=== PATIENT | male | born 1950 | race Caucasian/White ===

== ENCOUNTER → 2019-08-06 11:41 | Outpatient (CLI) | payer OTHER, SELFPAY ==
[2019-08-06 13:35] LABS: BUN Creatinine Ratio 26.3 (6-22); Blood Urea Nitrogen 21 mg/dL (9-20); Calcium 9.9 mg/dL (8.4-10.2); Carbon Dioxide 29 mmol/L (22-32); Chloride 102 mmol/L (98-107); Estimated Glomerular Filt Rate > 60.0 mL/min (>60); Glucose 169 mg/dL (80-110); HEMOLYSIS < 15 (0-50); Sodium 141 mmol/L (137-145)
== END ==
PROVIDERS: PCP Internal Medicine; Visit Provider Internal Medicine
DX: I10 Essential (primary) hypertension (principal)
CPT/HCPCS: 36415; 80048

== ENCOUNTER → 2021-07-04 09:37 | Outpatient (CLI) | payer OTHER, SELFPAY ==
[2021-07-04 11:58] LABS: COVID19 -Nasal RAPID Negative (Negative)
== END ==
PROVIDERS: PCP Internal Medicine; Visit Provider Nurse Practitioner
DX: Z01.812 Encounter for preprocedural laboratory examination (principal); Z20.822 Contact with and (suspected) exposure to COVID-19
CPT/HCPCS: 87635

== ENCOUNTER → 2021-07-04 14:10 | Outpatient (CLI) | payer OTHER, SELFPAY ==
[2021-07-04 15:28] LABS: Hemoglobin 15.4 g/dL (13.5-17.5); Mean Corpuscular HGB Conc 34.3 % (30-36); Mean Corpuscular Hemoglobin 29.3 PG (26-34); Mean Corpuscular Volume 85.5 fL (80-100); Platelet Count 158 X10^3/uL (150-400); Red Blood Cell Count 5.26 X10^6/uL (4.5-5.9); Red Cell Distribution Width 14.4 % (11.6-14.8); White Blood Cell Count 7.7 X10^3/uL (4.5-11.0)
[2021-07-04 15:31] LABS: Add Manual Diff / Slide Review YES
[2021-07-04 15:53] LABS: Blood Urea Nitrogen 21 mg/dL (9-20); Calcium 9.3 mg/dL (8.4-10.2); Carbon Dioxide 28 mmol/L (22-32); Chloride 105 mmol/L (98-107); Estimated Glomerular Filt Rate > 60.0 mL/min (>60); Glucose 96 mg/dL (80-110); HEMOLYSIS < 15 (0-50); Potassium 4.3 mmol/L (3.4-5.1); Sodium 140 mmol/L (137-145)
[2021-07-04 15:55] LABS: Neutrophils Absolute Manual 3157 /uL (3000-5900); Total Cells Counted 100
[2021-07-04 15:56] LABS: RBC Morphology Normal Morphology
== END ==
PROVIDERS: PCP Internal Medicine; Referring Provider Orthopaedic Surgery; Visit Provider Orthopaedic Surgery
DX: Z01.818 Encounter for other preprocedural examination (principal); R73.9 Hyperglycemia, unspecified; Z01.812 Encounter for preprocedural laboratory examination; Z20.822 Contact with and (suspected) exposure to COVID-19
CPT/HCPCS: 36415; 80048; 83036; 85007; 85025; 87635; 93005

== ENCOUNTER 2021-07-06 11:07 | Day surgery (SDC) | payer OTHER, SELFPAY ==
[2021-07-05 11:51] VITALS: BMI 29.5
[2021-07-06] VITALS (17 sets, daily range): BP systolic 111–168; BP diastolic 54–93; PULSE 57–103; RESP 13–20; TEMP 36.1–36.8; O2SAT 91–96; BMI 29.5
--- NOTE | 2021-07-06 06:00 | DI.RAD.S_ITS ---
PROCEDURE: XR SHOULDER RT 1V INDICATIONS: post op revision right reverse total shoulder TECHNIQUE: 1 views of the shoulder were acquired. COMPARISON: [facility] KEMAL Pineda, XR SHOULDER 2+ VIEWS RIGHT, 04/21/2021, 14:34. FINDINGS: Bones: Right shoulder reverse arthroplasty revision. Prosthesis projects in the expected location. No unexpected fracture seen. Soft tissues: Postoperative gas. IMPRESSION: Expected location of the right shoulder reverse arthroplasty. Dictated by: Sherwin Sims M.D. on 07/06/2021 at 16:32 Approved by: Sherwin Sims M.D. on 07/06/2021 at 16:33
[2021-07-06] MEDS: LACTATED RINGERS 1,000 ML 100 ML IV ×3 (12:01→17:32)
[2021-07-06] MEDS: PREGABALIN 75 MG CAPSULE PO (12:24)
[2021-07-06] MEDS: CELECOXIB 200 MG CAPSULE PO (12:24)
[2021-07-06] MEDS: ACETAMINOPHEN 325 MG TABLET 975 MG PO (12:25)
--- NOTE | 2021-07-06 12:29 | PM.PREOP ---
Pre-operative Note COVID-19 COVID-19 status: Negative Result date/Date tested (Pos, Neg/Pending): 07/04/21 Interval Note History & Physical reviewed/Exam performed by Physician: Yes Changes to H&P: No
[2021-07-06] MEDS: MIDAZOLAM 2 MG/2 ML VIAL IV (12:50)
[2021-07-06] MEDS: fentaNYL 100 MCG/2 ML INJ 50 MCG IV (13:14)
[2021-07-06] MEDS: CEFAZOLIN 1 GM VIAL 2 GM IV (13:23)
[2021-07-06] MEDS: TRANEXAMIC ACID 1,000 MG in SODIUM CHLORIDE 0.9% 100 ML 200 ML IV (13:34)
--- NOTE | 2021-07-06 14:18 | SUR.OPER ---
Beach chair with Schlein shoulder positioner. Lower body on padded OR bed. Head in foam padded head cradle, secured with straps. Non-operative arm secured <90 degrees abduction. Pillow under knees. Safety belt at thigh. Cloth tape over blanket over lower legs.
[2021-07-06] MEDS: BUPIVACAINE 0.25% W/ EPI 30 ML VIAL INJ (14:25)
--- NOTE | 2021-07-06 15:14 | SUR.PREOP ---
Block start time [1250] . Monitoring initiated and maintained throughout procedure. Oxygen and medications given per anesthesiologist instructions. Patient remained stable throughout procedure, no adverse reactions noted. Block end time [1255 ].
--- NOTE | 2021-07-06 15:32 | PM.OP.1 ---
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 procedure done in [place]. He has not had good pain relief and in fact has had worsening pain with the right shoulder. Radiographs have shown the prosthetic to be placed in a ?proud? position. He has failed non operative management and after discussion of the risks benefits and alternatives has requested revision. We have elected to proceed with revision to reverse total shoulder as the quality of the rotator cuff muscles is questionable. Risks discussed included but were not limited to: Failure to improve pain or function, infection, nerve damage, deep venous thrombosis, pulmonary embolism, stroke, myocardial infarction, permanent paralysis and . Surgeon: Koko Collins Purchasing Assistant: Ernie Pelaez Click Yes if Unassisted: No Anesthesia Type: General, Peripheral nerve block and Local Operative Notes Findings: Small stem hemiarthroplasty placed in a varus position with an oversized humeral head overhanging the medial calcar of the humerus. There was also extensive wear of the glenoid. Closure Type: primary Specimen(s): other (Membrane from the prosthetic sent for culture.) Prosthetic devices, grafts, tissues, transplants, or devices: A Kannan comprehensive micro stem prosthetic was removed. An Arthrex Universe Revers total shoulder system was implanted. These implants included a 24 mm +4 lateralized base plate with a 30 mm central screw, 4 peripheral locking screws measuring 5.5 mm in diameter and 28, 24, 20 and 16 mm in length. There was a 36/24 glenosphere with retaining screw and a 36 neutral suture cup with a size 12 humeral stem. Due to bone loss in the metaphysis the stem was cemented into place and a distal cement restrictor was placed. Applied: implant(s) Estimated Blood Loss (mL): 200 Blood products transfused: none Procedure in detail: The patient was seen in the preoperative area where they identified the right shoulder as the operative site and this was marked with my initials. They received preoperative antibiotics and underwent the induction of an interscalene block. They were taken to the operating room and placed on the operating room table in a supine position with the underwent the induction of a general anesthetic. There were then repositioned in the ?beach chair? position using a dedicated positioner. All pressure points were well padded. The knees were slightly bent to prevent tension on the sciatic nerves. A registered phlebotomist part time-out was performed. The right arm was prepared from the fingertips to the base of the neck with ChloraPrep in the usual fashion and draped through sterile drapes. An approximately 15 cm incision was created starting at the clavicle just above the coracoid and going to the deltoid insertion. This was placed lateral to the previous incision which had been placed quite medial to the coracoid. The deltopectoral interval was used to access the shoulder taking the vein to the lateral side. The vein was protected throughout the case. The lesser tuberosity was palpated and the subscapularis elevated to allow access to the shoulder. The shoulder was dislocated and a ?tuning fork? was used to remove the humeral head. A sample of the membrane under the humeral head was sent for culture. The joint did not appear grossly infected. Overgrowth of bone around the proximal humeral prosthetic was removed using osteotomes and rongeurs. A small flexible osteotome was then used to de prince the humerus from the humeral prosthetic. The appropriate broach handle was applied and using a slap hammer, stem was removed. There was minimal bone on the humeral stem however the shape of the stem left a substantial void in the proximal humerus. I modified the neck cut to 135? from what appeared to be a more vertical cut previously. We placed a broach from the Kannan set in the defect and applied a proximal humeral protector. Retractors were placed access the glenoid. The soft tissues were removed circumferentially around the glenoid, with great care being taken to avoid the axillary nerve by staying strictly on the bone of the glenoid. There was extensive scarring around the subscapularis and I avoided inferior release of the subscapularis to avoid the axillary nerve. The guide was used to drill the guide hole in the center of the inferior glenoid. The 24 mm Reamer was used. A rongeur was used to trim down prominent peripheral glenoid bone. The center hole of the glenoid was enlarged using the cannulated drill. The tap was then used. The glenoid prosthetic was assembled with a 30 mm screw and screwed into place with excellent bite. The peripheral locking screws were then placed through the appropriate guide. The glenoid head was impacted into position and checked for rotational and axial stability before placing the set screw. We then turned our attention to the humerus. The proximal humeral protector was removed, and the broach removed. Cylindrical reamers were used to size the canal, and redirect it from its varus oriented position. Broaching was then performed beginning with a small broach and working up until a fit with good rotational stability was obtained. The guide for the proximal metaphyseal reamer was then applied and we attempted to ream the metaphysis, however there was significant bone loss and minimal reaming was necessary. The trial metaphyseal portion of the body was then applied to the broach. Trial reductions were performed and the depth of the cup was optimized. Stability was checked in maximal internal and external rotation and range of motion was checked to allow access to the top of the head, internal rotation to an excess of 50? in the ?scarecrow position? and the ability to reach the groin. The appropriate final prosthetic components were then opened. Due to the significant difference in shape of the 2 prostheses, I elected to cement the stem to maximize rotational stability. A distal cement restrictor was placed and gentamicin containing bone cement was injected into the humeral canal. The final prosthetic was then impacted in position. The humeral cup was placed. The joint was relocated and irrigated. The subscapularis was not repaired due to bone loss and scarring of the subscapularis. The axillary nerve was palpated and confirmed to be intact at the conclusion of the case. The deltopectoral interval was reapproximated with 0 Vicryl. Subcutaneous layer was closed with interrupted 3-0 Vicryl and skin with a running 3 0 V lock suture and Dermabond. Subcutaneous tissues were then infiltrated with 0.5% Marcaine for postoperative pain control. An Aquacel Ag dressing was applied and the patient's arm was placed in a sling. The patient was then transferred to the recovery room in good condition having tolerated the procedure well. Complications: none Post-operative Condition: stable Disposition: PACU Plan for aftercare: The patient will be maintained on a standard reverse total shoulder protocol. He will be allowed to use his hand in front of his body to lift 1-2 lb for day-to-day activities but otherwise will remain in a sling and do pendulum exercises for 6 weeks. He will likely be discharged tomorrow morning.
[2021-07-06] MEDS: IBUPROFEN 400 MG TABLET PO ×2 (17:31→20:58)
--- NOTE | 2021-07-06 17:50 | PC.NURSE ---
Patient arrived on unit from PACU at 1705. Bed low and locked, call light within reach as well as other belongings. Patient is alert and oriented and weaned off oxygen as he came up from PACU with 3L. Saturations at 92-93% on RA. Denies pain, sob, nausea. Patient was able to void 375mL at 1740. Dressing CDI and right arm in sling. IVF running at 100ml/hr. at bedside and is very attentive to the patient.
[2021-07-06] MEDS: ACETAMINOPHEN 325 MG TABLET 650 MG PO (20:57)
[2021-07-06] MEDS: DOCUSATE 100 MG CAPSULE PO (20:58)
[2021-07-06] MEDS: ASPIRIN EC 81 MG TABLET PO (20:58)
[2021-07-06] MEDS: LOSARTAN 25 MG TABLET PO (20:58)
[2021-07-06] MEDS: METOPROLOL ER 25 MG TABLET PO (20:58)
[2021-07-07] MEDS: IBUPROFEN 400 MG TABLET PO ×3 (00:48→08:59)
[2021-07-07] MEDS: OXYCODONE IR 10 MG TABLET PO ×2 (03:14→09:00)
[2021-07-07 03:18] VITALS: BP 127/79; PULSE 65; RESP 16; TEMP 36.7; O2SAT 94
[2021-07-07] MEDS: LACTATED RINGERS 1,000 ML 100 ML IV (03:19)
--- NOTE | 2021-07-07 03:26 | PC.NURSE ---
Patient is alert and oriented. Breath sounds CTA with RA sat of 94%. HRR. Denied nausea. BT hypoactive and denies passing flatus as yet. Has voided using urinal and denied dysuria, frequency or urgency. Is able to move himself in bed. Has stood at edge of bed to use urinal with SBA and is steady on feet. Dressing to right shoulder is CDI. Right arm is in sling. Does have some numbness, still, in fingers of right hand; good radial pulse and cap refill. Denied pain at the time of assessment but now states pain is 8/10 and so medicated with Oxycodone and ice pack applied. Wearing bilateral calf SCD's. Fall risk score is moderate; bed alarm is activated.
[2021-07-07] MEDS: HYDROMORPHONE 2 MG TABLET PO (04:54)
--- NOTE | 2021-07-07 08:07 | P.DS_ITS ---
History of Present Illness History of Present Illness Date Patient Seen: 07/07/21 Time Patient Seen: 08:07 Chief complaint: Left total Shoulder Arthroplasty - Reverse/ RT PETER Narrative: History and physical is contained in the chart in a previously completed note. Please refer to that note for this information. Discharge Providers Provider Date of admission: July 06, 2021 Discharge Date: 07/07/21 Primary care physician: Sachin Hernandez MD Consults: 07/06/21 17:10 Consult to Discharge Planning Routine Comment: Consult to Physical Therapy Evaluate & Treat Comment: Physician Instructions: pendulums, PROM 90 flexion, 0 ER, 0 Ab, IR to body Discharge provider: Koko Collins MD Summary Hospital Course Discharge Diagnosis: Failed prior right ?ream and run? shoulder hemiarthroplasty Hospital Course: The patient was admitted to the hospital and taken directly to the operating room on July 06, 2021. He underwent a revision of his hemiarthroplasty to a reverse total shoulder replacement. He was stable overnight. On the morning of postoperative day 1 he had reasonable pain control and was stable for discharge home. Status at Discharge Cognitive/behavioral status at discharge: oriented Functional status at discharge: independent ambulation Overall status at discharge: patient is progressing back to baseline Time Spent with Patient Time spent: Less than 30 minutes Exam Vital Signs (past 8 hours): - 07/07/21 03:18 Temperature 98.1 F Pulse Rate 65 Respiratory Rate 16 Blood Pressure 127/79 Pulse Oximetry 94 Oxygen Delivery Method Room Air Oxygen Flow Rate 0 Narrative Exam Narrative: Right shoulder wound is dressed with no drainage on the bandage. Light touch is intact in the radial, ulnar, median, musculocutaneous and axillary nerve distributions. He can extend his thumb, abduct his thumb, abduct his fingers and can fire his biceps and deltoid. [facility] Medical History (Updated 07/05/21 @ 12:16 by Elena Ngo RN) Borderline high cholesterol CLL (chronic lymphocytic leukemia) (~02/2021) History of compression fracture of spine (1967) HTN (hypertension) Nerve damage Osteoarthritis Pelvic fracture (1967) Prostate cancer Surgical History (Updated 07/05/21 @ 12:16 by Elena Ngo RN) History of arthroplasty of right shoulder (11/28/17) History of arthroscopy of left shoulder History of arthroscopy of right shoulder Hx of bilateral cataract extraction Hx of hernia repair Hx of prostatectomy Hx of sinus surgery Hx of tonsillectomy Social History household members: spouse and children Smoking Status: Never smoker alcohol intake: former Discharge Assessment & Plan Assessment and Plan Assessment: Stable postoperative day 1 status post revision of hemiarthroplasty to total shoulder on the right. Plan of Treatment: Discharged home today after physical therapy this morning, follow-up my office in 10-14 days. A discharge prescription for oxycodone has been sent to his primary pharmacy. He has been instructed in the use of Tylenol and ibuprofen for additional pain control and the use of low-dose aspirin for DVT prophylaxis. Discharge Plan Discharge Plan Patient Disposition: Home Discharge orders & Medications Discharge Orders: Discharge (Order); Ordered 07/07/21 Ordered By: Koko Collins Prescriptions: New acetaminophen 325 mg Tablet 650 mg PO TID 30 Days Qty: 180 RF: 0 aspirin 81 mg Tablet,Delayed Release (Dr/Ec) 81 mg PO BID 42 Days Qty: 84 RF: 0 ibuprofen 400 mg Tablet 400 mg PO Q4HR 30 Days RF: 0 oxycodone 5 mg Tablet 5 mg PO Q4H PRN (Reason: Pain, Moderate (4-6)) Qty: 40 RF: 0 Continued losartan 25 mg Tablet 25 mg PO BEDTIME RF: 0 metoprolol succinate 25 mg Tablet Extended Release 24 Hr 25 mg PO BEDTIME RF: 0 Follow up/Referrals: Sachin Hernandez MD [Primary Care Provider] - Koko Collins MD [Physician] - 2 Weeks Diet/Activity/Treatments Diet: Diet as Tolerated and Regular Activity: You may use your right arm in front of your body below shoulder level to lift 1-2 lb. You may do pendulum exercises. Stay in the sling unless you are doing light activities in your house or the pendulum exercises or showering. Cold/Heat Therapy: You may apply ice to the right shoulder for 15 minutes every hour as needed for pain control. Skin/Wound/Dressing Care Report to your healthcare provider any signs of infection, such as:: chills, fever, night sweats, increased pain, unusual drainage and unusual redness Dressing: Leave the dressing intact until your follow-up. You may shower with the dressing in place. If the central strip of the dressing becomes saturated with either water or blood, please call the office to have it evaluated. Visit Report/Discharge Packet Instructions: DI for Shoulder Replacement Stand Alone Forms: Surgery Discharge Discharge Data Primary Care Provider: Sachin Hernandez Attending Provider: Koko Collins Quality VTE Deep Vein Thrombosis/Pulmonary Embolism Present on Admission: No
[2021-07-07 08:10] VITALS: BP 137/83; PULSE 65; RESP 16; TEMP 37.5; O2SAT 94
[2021-07-07] MEDS: ASPIRIN EC 81 MG TABLET PO (09:00)
[2021-07-07] MEDS: DOCUSATE 100 MG CAPSULE PO (09:00)
[2021-07-07] MEDS: ACETAMINOPHEN 325 MG TABLET 650 MG PO (09:00)
--- NOTE | 2021-07-07 09:17 | CM.DANOTE ---
Addendum entered by Trudi Durand LPN 07/07/21 09:28: Met with pt and his Ivy. Both are found sitting up on the side of the bed, waiting for first session of PT. Pt confirms he will be going home today. Ivy has an appt with Dr. Collins in clinic at 1030 so she will go to this and then return to pick her up. HUYEN Galicia is aware of plan. P: home today. Original Note: Discharge Planning/Care Management DCP: assessment: case received, EMR reviewed, dc to home order noted by Dr. Collins: after morning PT. Pt admitted for a schedule L TSA. Payer: [facility]. Has home support from family. Will check in now with pt and follow prn. CM Discharge Assessment Start: 07/07/21 09:16 Freq: Status: Active Protocol: Document 07/07/21 09:16 ITV (Rec: 07/07/21 09:17 ITV [id number]) Discharge Planning Assessment Advance Directives? No Prior Living Arrangements House Household Members spouse,children Review Status In Process Pre-Anesthesia Assessment Start: 07/05/21 11:51 Freq: Status: Complete Protocol: Document 07/05/21 11:51 CAB (Rec: 07/05/21 12:36 CAB [id number]) Pre-Anesthesia Assessment Preferred Name Dusty Patient Information Reviewed Via Phone Assessment Assessment Completed With Patient Diagnostic Results BMP/CMP,CBC,EKG Comment Labs/EKG @ 07/04/21, COVID screen @ 07/04/21 Negative Primary Care Provider Sachin Hernandez Seen Specialist in Last 12 Months Yes Specialist Seen Oncologist,Opthamologist/ Extruder Operator Horizontal,Orthopedist,Other Comment Neurology Primary Language Palestinian Casting Machine Adjuster Required No Height 180.34 cm Weight 96.162 kg Body Mass Index (BMI) 29.5 Hearing Ability Normal Visual Impairment No Limitations Visual Assist None Dentition Type Teeth, Natural Present,Teeth, Missing Barriers to Learning None Hx Anesthesia Reactions No Hx Family Anesthesia Reaction No Hx Malignant Hyperthermia No Hx Blood Transfusions No Anesthesia Review Requested No alcohol intake former Alcohol Intake Frequency Other: Stopped age 16 Smoking Status Never smoker Substance Use Type does not use Pain Present Pain Reported Musculoskeletal Symptoms Joint Pain,Limited Range of Motion,Numbness History of Falling (Recent or History of No ) Patient is completely paralyzed or No completely immobile Mental Status Oriented to own ability Is patient on oxygen? No Does patient have LAWTON/SOB Yes: Very occasional, pt feels related to CLL Hx Sleep Apnea No Currently Taking a Beta Aisha Yes: Metoprolol Can You Climb a Flight of Stairs Without Yes SOB Hx Chest Pain No Hx SOB Yes: Very occasional, pt feels related to CLL Hx Syncope or Dizziness No Anti-Coagulant Therapy No Has a Project Manager Process Development No Cardiac Testing No Hx Pacemaker/ICD No Pacemaker Rep Required? No Cardiac Clearance Received Not Applicable Diet Type At Home Regular dysphagia No Urinary Catheter Present No Hx Urinary Self Catheterization No Diabetes No Hx Drug Resistant Organism No Presence of External or Internal Medical Yes: Right shoulder, eye lens Devices Have you had any close contact with No someone diagnosed with COVID-19? Marital Status Lives With spouse,children Prior Living Arrangements House Number of Floors (Floors) One Floor Support System Child/Children,Spouse Does the Patient Have Assistance After Yes Surgery Patient Discharge Plan Description Return Home Comment Pt advised overnight length of stay per surgeon Feels Safe in Current Environment Yes Been Physically Hurt or Threatened By a No Person in Current Environment Do you have thoughts of harming yourself None or others? Are you currently considering suicide? No Do you have a plan to hurt yourself or No Plan others? Do You Have Any Spiritual Beliefs That No May Affect Your HC Choices? Do You Have Any Cultural Practices That No May Affect Your HC Choices? Comment LDS Who Can We Speak to About Patient's Care Family, friends Identifying Code for Release of Patient Declines to issue Information Health Care Proxy/Next of Kin Ivy () Health Care Proxy Emergency Contact Name Ivy () Emergency Contact Advance Directives? Yes: Working on currently Power of Search And Rescue Officer No PAC Instructions Durable medical equipment, Medications to take/avoid, Nasal antibiotic,No ETOH/ petroleum product on skin DOS, NPO,Post-op transportation,Pre -surgical wash,Sturdy shoes/ comfortable clothes,Do not bring valuables and remove jewelry
--- NOTE | 2021-07-07 10:24 | PC.NURSE ---
Assess- Patient is alert and oriented, states pain level is a 8/10, given oxycodone, tylenol, and ibuprofen. This has been helpful for pain control. He is now working with physical therapy and doing well. Patient has an aquacel to his r.shoulder and he has feeling to his arm. States that he has some numbess to the l.side of his cheek but this is from something entirely different, he has been having issues with and states that he is seeing a doctor for this. Denies numbness or tingling to his r.hand and fingers
--- NOTE | 2021-07-07 10:56 | PT.IIE ---
Current Diagnoses Primary osteoarthritis, left shoulder (07/06/21) Presence of unspecified artificial shoulder joint (07/06/21) Surgery Performed Operation Date: 07/06/21 12:45 Actual Procedures p Total Shoulder Arthroplasty - Reverse, Revision(Right) - Koko Collins MD Medical History (Last Updated 07/05/21 @ 12:16 by Elena Ngo RN) Borderline high cholesterol CLL (chronic lymphocytic leukemia) (~02/2021) History of compression fracture of spine (1967) HTN (hypertension) Nerve damage Osteoarthritis Pelvic fracture (1967) Prostate cancer Physical Therapy Inpatient Evaluation/Re-Eval M1 PT/OT-IP Prior Functional Status Start: 07/07/21 10:42 Freq: NEEDED Status: Active Protocol: Document 07/07/21 10:15 AMB (Rec: 07/07/21 10:55 AMB [email or web address]) Medical Review Prior Functional Status Medical History Reviewed Yes Diet/Fluid Consistency Regular Communication WFL Mobility and Gait Community ambulator without AD Social History Household Members spouse,children Living Arrangements House Number of Floors (Floors) One Floor Number of Stairs To Enter/Railing? 1 JESSICA Home Environment Walk in Shower Additional Social History Comment Plans to sleep in recliner for first week M2 PT-IP Current Condition Start: 07/07/21 10:42 Freq: NEEDED Status: Active Protocol: Document 07/07/21 10:15 AMB (Rec: 07/07/21 10:55 AMB [email or web address]) Physical Therapy Current Condition Current Condition Evaluation Date 07/07/21 Treatment Diagnosis RIGHT reverse total shoulder Onset Date 07/06/21 Precautions Shoulder Precautions Sling,PROM,Internal Rotation to Body,No External Rotation, No Abduction,Forward Flexion to 90 degrees,Pendulums M3 PT-IP Subjective Start: 07/07/21 10:42 Freq: NEEDED Status: Active Protocol: Document 07/07/21 10:15 AMB (Rec: 07/07/21 10:55 AMB [email or web address]) Subjective Physical Therapy Visit Type Type Initial Evaluation Visit Start Time 10:15 Visit Stop Time 10:35 Total Visit Minutes 20 Physical Therapy Visit Comments Patient Comments Pt reports he is ready to d/c home. is coming to pick him up in an hour or two Therapy Pain Assessment Pain When Pain Assessed At Rest Pain Present Pain Present Pain Reported Location Right Shoulder Intensity 6 Scale Used Numeric (0 - 10) Pain Management Techniques Apply Cold,Timing of Activity with Medications M4 PT-IP Mobility and Gait Start: 07/07/21 10:42 Freq: NEEDED Status: Active Protocol: Document 07/07/21 10:15 AMB (Rec: 07/07/21 10:55 AMB [email or web address]) PT-Bed Mobility Assessment Rolling Type of Rolling Roll to Left Level of Assist Standby Assistance Supine to Sit Supine to Sit Standby Assistance Sit to Supine Sit to Supine Standby Assistance Scooting Scooting to Edge of Bed Independent PT-Transfer Assessment Sit to and From Stand Sit to and from Stand Standby Assistance Equipment Transfer Assistive Device Gait Belt Transfers Transfer Destination Bed Transfer Technique Stand Step Pivot Transfer Ability Level of Assist Standby Assistance Gait Assessment Gait Gait Assistance Required: Contact Guard Assist Distance (Feet) 100 Assistive Devices Assistive Device Gait Belt Gait Deviations General Gait Pattern Within Normal Limits Comments Gait Comments Pt ambulated carefully down mccullough and back, able to safely move around hospital room. PT managed IV line. PT-Balance Assessment Sitting Balance and Reactions Static Sitting Balance Ability Normal Dynamic Sitting Balance Ability Normal Standing Balance and Reactions Static Standing Balance Ability Normal Dynamic Standing Balance Ability Good M5 PT-IP Objective Assessments Start: 07/07/21 10:42 Freq: NEEDED Status: Active Protocol: Document 07/07/21 10:15 AMB (Rec: 07/07/21 10:55 AMB [email or web address]) Orientation Orientation/Cognition Level of Alertness Alert Gross Range of Motion Upper Extremity ROM Assessment Right Impaired Impairments In sling, instructed in pendulums M6 PT-IP Treatment Start: 07/07/21 10:42 Freq: NEEDED Status: Active Protocol: Document 07/07/21 10:15 AMB (Rec: 07/07/21 10:55 AMB [email or web address]) Physical Therapy Treatment Exercises Exercises Shoulder Pendulums,Elbow Flexion/Extension,Wrist ROM, Hand ROM Education Education Provided Precautions,Post-Op Packet, Safety M7 PT-IP Assessment and Plan Start: 07/07/21 10:42 Freq: NEEDED Status: Active Protocol: Document 07/07/21 10:15 AMB (Rec: 07/07/21 10:55 AMB [email or web address]) PT Summary Assessment and Plan Potential Rehabilitation Potential Good Status of Condition at Evaluation Stable Summary Impairments Pain,ROM,Strength Assessment Summary Dusty had RIGHT reverse total shoulder. This is his 5th shoulder surgery. He states he is familiar with pendulums and donning/doffing sling, PT demonstrated. Pt was SBA/ independent with transfer/gait throughout hospital room, and pt plans to sleep in recliner when home. Pt should be safe to go home with family assist when medically stable. Goals Bed Mobility Goal Independent Transfer Goal Independent Gait Goal Independent Gait Distance 100 Days to Meet Goals 1 Frequency of Treatment Frequency Of Treatment Discharge Treatment Plan Physical Therapy Treatment Plan Bed Mobility Training,Gait Training,Therapeutic Exercise, Post Op Education,Hot or Cold Pack Precautions Shoulder Precautions Sling,PROM,Internal Rotation to Body,No External Rotation, No Abduction,Forward Flexion to 90 degrees,Pendulums Recommendations To Nursing Amount of Assist Needed Standby Assistance Discharge Recommendations PT Discharge Recommendations Home with Assistance Transportation Needs at Discharge Private Vehicle
== END 2021-07-07 12:03 | disposition home or self-care (01) ==
LOC: OR 11:11 → AC 11:11
PROVIDERS: PCP Family Medicine; Referring Provider Orthopaedic Surgery; Visit Provider Orthopaedic Surgery
PROC: (CPT 23472; principal; 2021-07-06 12:45)
DX: M19.011 Primary osteoarthritis, right shoulder (principal); Z96.611 Presence of right artificial shoulder joint; C91.10 Chronic lymphocytic leukemia of B-cell type not having achieved remission
CPT/HCPCS: 23472; 73020; 87070; 87075; 87176; 87205; 97161; C1776; J0690; J2250; J3010

== ENCOUNTER 2022-05-18 18:48 | Emergency (ER) | payer OTHER, SELFPAY ==
[2021-07-06 17:13] VITALS: BMI 29.5
--- NOTE | 2022-05-18 18:56 | DI.RAD.S_ITS ---
PROCEDURE: XR CHEST 2V INDICATIONS: cough,fever, TECHNIQUE: 2 views of the chest were acquired. COMPARISON: None. FINDINGS: Surgical changes and devices: Right shoulder arthroplasty. Lungs and pleura: Lungs are clear. No pleural effusions or pneumothorax. Mediastinum: Mediastinal contours are normal. Heart size is normal. Bones and chest wall: No suspicious bony abnormalities. Soft tissues appear unremarkable. IMPRESSION: No acute process. Dictated by: Wayne Fernandez M.D. on 05/18/2022 at 19:17 Approved by: Wayne Fernandez M.D. on 05/18/2022 at 19:17
[2022-05-18 18:57] VITALS: BP 155/76; PULSE 65; RESP 16; TEMP 37.6; O2SAT 94; BMI 29.0
[2022-05-18 19:06] VITALS: PULSE 69; O2SAT 95
--- NOTE | 2022-05-18 19:19 | ED.URI ---
HPI - URI/Sore Throat General Chief Complaint: Upper Respiratory Symptoms Stated Complaint: fever, told him to come here Time Seen by Provider: 05/18/22 19:00 Source: patient Mode of arrival: Ambulatory History of Present Illness HPI Narrative: Patient here with . Patient states primary care office inform him to come here or clinic for complaints 1-1/2 weeks of body aches fever chills cough. History of chronic bronchitis. No history of recurrent pneumonia. No history of asthma or COPD. Does not smoke. Took Aleve today. Still feels warm. Has a headache. Patient not toxic. Not dyspneic. Diagnosed with CLL last year. Does have oncologist but at this time not requiring any chemotherapy or maintenance medication. Never needed to start these medications Related Data Home Medications Medication Instructions Recorded Confirmed losartan 25 mg tablet 25 mg PO BEDTIME 07/05/21 07/06/21 metoprolol succinate 25 mg 25 mg PO BEDTIME 07/05/21 07/06/21 tablet,extended release 24 hr Previous Rx's Medication Instructions Recorded oxycodone 5 mg tablet 5 mg PO Q4H PRN Pain, Moderate 07/07/21 (4-6) #40 tabs Allergies Allergy/AdvReac Type Severity Reaction Status Date / Time azithromycin Allergy Intermediate Vomiting Verified 05/18/22 19:03 Review of Systems Review of Systems Narrative: GENERAL: Positive for chills, fatigue, malaise, fever, sweats. HEENT: Denies sinus pain, ear pain, sore throat RESPIRATORY: Denies dyspnea, positive for cough CARDIOVASCULAR: Denies chest pain, palpitations GASTROINTESTINAL: Denies nausea, vomiting, abdominal pain : Denies dysuria, frequency, hematuria MUSCULOSKELETAL: Positive for muscle or bony pain SKIN: Denies rash, skin lesions NEUROLOGIC: Denies weakness, numbness ROS Unobtainable: All systems reviewed & are unremarkable except as noted in HPI and below Patient History Medical History Borderline high cholesterol CLL (chronic lymphocytic leukemia) (~02/2021) History of compression fracture of spine (1967) HTN (hypertension) Nerve damage Osteoarthritis Pelvic fracture (1967) Prostate cancer Surgical History History of arthroplasty of right shoulder (11/28/17) History of arthroscopy of left shoulder History of arthroscopy of right shoulder Hx of bilateral cataract extraction Hx of hernia repair Hx of prostatectomy Hx of sinus surgery Hx of tonsillectomy Social History household members: spouse and children Smoking Status: Never smoker alcohol intake: former Smoking Status: Never smoker alcohol intake frequency: other Substance Use Type: does not use Exam Narrative Exam Narrative: GENERAL: in no distress, not toxic not dyspneic HEAD: Normocephalic. EYES: Pupils equal round No scleral icterus. ENT: Mucous membranes moist. NECK: Trachea midline. CARDIOVASCULAR: Regular rate and rhythm without murmurs RESPIRATORY: Clear to auscultation. Breath sounds equal bilaterally. No wheezes, rales, or rhonchi. Speaking full sentences. No respiratory distress GASTROINTESTINAL: Abdomen soft, non-tender EXTREMITIES: No gross deformities. BACK: No flank tenderness. NEURO: AOx4. SKIN: Warm and dry PSYCH: Not anxious, is cooperative Initial Vital Signs Initial Vital Signs: Vital Signs Temperature 99.7 F H 05/18/22 18:57 Pulse Rate 65 05/18/22 18:57 Respiratory Rate 16 05/18/22 18:57 Blood Pressure 155/76 H 05/18/22 18:57 Pulse Oximetry 94 05/18/22 18:57 Oxygen Delivery Method 05/18/22 18:57 Course Course Course Narrative: No new issues during course of stay Orders Ordered: Discontinued Medications Acetaminophen (Acetaminophen 325 Mg Tablet) 975 mg PO NOW ONE Stop: 05/18/22 19:22 Last Admin: 05/18/22 19:43 Dose: 975 mg Documented By: ERIKA Reevaluation(s) Reevaluation #1: Reviewed results with patient and and regarding discussion with infectious disease. They understand treatment plan. They understand return precautions as well. Time: 20:35 Consultations Consultation #1: Reviewed with [facility] infectious Disease, Dr. Vic Small, patient's symptoms greater than 10 days. Does not qualify for Paxlovid or Bebtelovimab. Time: 20:15 Vital Signs Vital signs: Vital Signs - 8 hr 05/18/22 18:57 05/18/22 19:06 05/18/22 19:43 Temperature 99.7 F H 99.7 F H Pulse Rate 65 69 Respiratory Rate 16 Blood Pressure 155/76 H Pulse Oximetry 94 95 Oxygen Delivery Method Room Air MDM - URI/Sore Throat Differential Diagnosis Differential diagnosis: Likely upper respiratory infection, viral infection and bronchitis Lab Data Labs: Lab Results 05/18/22 Range/Units 18:50 SARS-CoV-2 (PCR) Positive H (Negative) Influenza A (RT-PCR) Flu a negative (NEGATIVE) Influenza B (RT-PCR) Flu b negative (NEGATIVE) Imaging Data Chest x-ray: Radiologist's Impression: [address] [address] XRay Report Signed Patient: Koko Templeton MR#: [id number] : 1950 Acct:[id number] Age/Sex: 71 / M Date of Service: 05/18/22 Loc: ED Accession Number: [id number] ?? Procedure: XR chest 2V Ordering Provider: Rafael Toussaint MD PROCEDURE:? XR CHEST 2V ? INDICATIONS:? cough,fever, ? TECHNIQUE:? 2 views of the chest were acquired.? ? COMPARISON:? None. ? FINDINGS:? ? Surgical changes and devices:? Right shoulder arthroplasty. ? Lungs and pleura:? Lungs are clear.? No pleural effusions or pneumothorax.? ? Mediastinum:? Mediastinal contours are normal.? Heart size is normal.? ? Bones and chest wall:? No suspicious bony abnormalities.? Soft tissues appear unremarkable.? ? IMPRESSION:? No acute process. ? ? Dictated by: Wayne Fernandez M.D. on 05/18/2022 at 19:17 ? ? Approved by: Wayne Fernandez M.D. on 05/18/2022 at 19:17 ? [facility] Narrative Medical decision making narrative: Appropriate for discharge home. Exam and laboratory studies otherwise reassuring. Not requiring supplemental oxygen. Not hypoxic. Return precautions reviewed with them. Not toxic at discharge. They desire discharge home. No blood work indicated at this time. Infectious Disease was contacted. Discharge Plan Departure Patient Disposition: Home Clinical Impression: COVID-19 Instructions: DI for COVID-19 (Suspected or Confirmed ) Activity Restrictions/Additional Instructions: Must quarantine until fever free for 24 hours without use of fever medication. Be sure to keep well hydrated. See her family doctor next week for re-evaluation, usually office is provided tele video meetings. May continue home Tylenol or ibuprofen for fever control. Return immediately if any questions or concerns or worsening symptoms or any trouble breathing. Prescriptions: No Action losartan 25 mg Tablet 25 mg PO BEDTIME metoprolol succinate 25 mg Tablet Extended Release 24 Hr 25 mg PO BEDTIME oxycodone 5 mg Tablet 5 mg PO Q4H PRN (Reason: Pain, Moderate (4-6)) Qty: 40 0RF Referrals: Sachin Hernandez MD [Primary Care Provider] - Visit Report Forms: Patient Portal/API
[2022-05-18 19:43] VITALS: TEMP 37.6
[2022-05-18] MEDS: ACETAMINOPHEN 325 MG TABLET 975 MG PO (19:43)
[2022-05-18 19:50] LABS: Influenza A - CEPHEID Flu A NEGATIVE (NEGATIVE); Influenza B - CEPHEID Flu B NEGATIVE (NEGATIVE)
[2022-05-18 19:51] LABS: COVID-19 CEPHEID PCR (VTM/NP) POSITIVE (Negative)
[2022-05-18 20:37] VITALS: BP 142/69; PULSE 67; RESP 18; O2SAT 94
== END 2022-05-18 20:38 | disposition home or self-care (01) ==
PROVIDERS: Emergency Provider Emergency Medicine; PCP Family Medicine; Referring Provider Family Medicine
DX: U07.1 COVID-19 (principal)
CPT/HCPCS: 71046; 87635; 99283; C9803

== ENCOUNTER 2023-04-19 06:41 | Day surgery (SDC) | payer OTHER, SELFPAY ==
[2021-07-06 17:13] VITALS: BMI 29.5
--- NOTE | 2023-04-19 | PATH_ITS ---
[facility] Accession Number: [id number] No. of containers..02 Tissue . 01 Material submitted: . PART A: colon - SIGMOID POLYP PART B: rectum - RECTAL POLYP . 01 Diagnosis: A. Sigmoid Colon, Polypectomy: Traditional serrated adenoma. Please see comment. . B. Rectum, Polypectomy: Hyperplastic polyp. V 04/26/2023 1737 Local . 01 Comment: A. Current surveillance guidelines recommend that a traditional serrated adenoma should be treated similar to an advanced adenoma. Complete polypectomy and shortened surveillance interval are recommended. . . 01 Electronically signed: . Maday Neri MD, Pathologist NPI- [id number] . 01 Gross description: . Part A: SIGMOID POLYP: Received in formalin is 1 fragment(s) of watkins, soft tissue measuring 0.4 x 0.3 x 0.2 cm submitted entirely in 1 cassette(s) Part B: RECTAL POLYP: Received in formalin is 1 fragment(s) of watkins, soft tissue measuring 0.4 x 0.3 x 0.2 cm submitted entirely in 1 cassette(s) /[facility] 04/24/2023 1638 Local . 01 Pathologist provided ICD-10: D12.5 . 01 CPT . 174122, [id number] Specimen Comment: A courtesy copy of this report has been sent to [phone] Performed at: [facility] [address] [place] [address] [id number] MD Marin Soto MD Phone: [phone]
[2023-04-19 07:10] VITALS: BMI 26.4
[2023-04-19 07:14] VITALS: BP 126/73; PULSE 62; RESP 16; TEMP 36.6; O2SAT 97
[2023-04-19] MEDS: LACTATED RINGERS 1,000 ML 42 ML IV (07:31)
--- NOTE | 2023-04-19 07:46 | P.HP_ITS ---
History of Present Illness History of Present Illness Date Patient Seen: 04/19/23 Time Patient Seen: 07:46 Chief complaint: Colonoscopy Narrative: Dusty is a 72-year-old man who is here for a colonoscopy. He had partial colonoscopy, probably a flexible sigmoidoscopy, about 20 years ago without sedation. He has no family history of colon cancer. [facility] Medical History Borderline high cholesterol CLL (chronic lymphocytic leukemia) (~02/2021) History of compression fracture of spine (1967) HTN (hypertension) Nerve damage Osteoarthritis Pelvic fracture (1967) Prostate cancer Surgical History History of arthroplasty of right shoulder (11/28/17) History of arthroscopy of left shoulder History of arthroscopy of right shoulder Hx of bilateral cataract extraction Hx of hernia repair Hx of prostatectomy Hx of sinus surgery Hx of tonsillectomy Social History household members: spouse and children Smoking Status: Never smoker alcohol intake: former Meds Home Medications and Allergies Home Medications Medication Instructions Recorded Confirmed Type losartan 25 mg tablet 25 mg PO BEDTIME 07/05/21 04/19/23 History metoprolol succinate 25 mg 25 mg PO BEDTIME 07/05/21 04/19/23 History tablet,extended release 24 hr Allergies Allergy/AdvReac Type Severity Reaction Status Date / Time azithromycin Allergy Intermediate Vomiting Verified 04/19/23 07:08 Exam Vital Signs (past 8 hours): - 04/19/23 07:14 Temperature 97.8 F Pulse Rate 62 Respiratory Rate 16 Blood Pressure 126/73 Pulse Oximetry 97 Oxygen Delivery Method Room Air Oxygen Delivery Method Room Air Const General: healthy appearing Assessment & Plan Assessment and plan (1) Colon cancer screening: Status: Acute Plan We reviewed the risks benefits and rationale of colonoscopy for colon cancer screening. He understands the risks and would like to proceed.
--- NOTE | 2023-04-19 08:23 | PM.OP.COLON ---
Operative Date/Time/Diagnoses Date of procedure: 04/19/23 Time of procedure: 08:23 Pre-op diagnosis: Colon cancer screening Post-op diagnosis: same Procedure & Clinicians Study performed: Colonoscopy Same procedure as scheduled: Yes Surgeon: Iftikhar Esquivel Procedure Notes Procedure in detail: Surgeon: Iftikhar Esquivel MD Anesthesia: Dr. Charlene GOMEZ Procedure: The patient was brought to the endoscopy suite, placed in left lateral decubitus position. The patient was connected to monitoring devices. A time-out was performed. Sedation was administered. Once the patient was adequately sedated, a digital rectal exam was performed and was normal. The scope was then inserted and advanced to the cecum where the appendiceal orifice was identified and photographed. The scope was then slowly withdrawn over greater than 6 minutes. The mucosa was thoroughly inspected. There was a 5 mm polyp in the sigmoid colon removed cold snare. Was moderate sigmoid diverticulosis. There was a 3 mm polyp in the upper rectum removed with cold snare. The scope was retroflexed in the rectum. There was small internal hemorrhoid versus a papilla. No other abnormalities were seen. The scope was straightened and removed. The patient was awakened and brought to recovery. Scope withdrawal time: 11 minutes Sedation time: 20 minutes EBL: 2 mL Findings: Moderate sigmoid diverticulosis, 5 mm polyp in the sigmoid colon and 3 mm polyp in the rectum Post-procedure Disposition: PACU
[2023-04-19 08:26] VITALS: BP 91/49; PULSE 54; RESP 10; TEMP 36.3; O2SAT 93
[2023-04-19 08:29] VITALS: BP 108/60; PULSE 57; RESP 13; O2SAT 93
[2023-04-19 08:34] VITALS: BP 103/63; PULSE 53; RESP 17; O2SAT 95
[2023-04-19 08:42] VITALS: BP 103/63; PULSE 54; RESP 16; TEMP 36.4; O2SAT 95
== END 2023-04-19 08:46 | disposition home or self-care (01) ==
PROVIDERS: PCP Family Medicine; Referring Provider Surgery; Visit Provider Surgery
PROC: 0DJD8ZZ Inspection of Lower Intestinal Tract, Via Natural or Artificial Opening Endoscopic (ICD-10-PCS; CPT 45378; principal; 2023-04-19 07:45)
DX: Z12.11 Encounter for screening for malignant neoplasm of colon (principal); K57.30 Diverticulosis of large intestine without perforation or abscess without bleeding; D12.5 Benign neoplasm of sigmoid colon; K62.1 Rectal polyp
CPT/HCPCS: 45385; J2704; J3010

== ENCOUNTER → 2023-08-27 17:48 | Outpatient (CLI) | payer OTHER, SELFPAY ==
[2021-07-06 17:13] VITALS: BMI 29.5
--- NOTE | 2023-08-27 17:50 | DI.RAD.S_ITS ---
PROCEDURE: XR LUMBAR SPINE 2-3V INDICATIONS: Upright/Weightbearing TECHNIQUE: 3 views of the lumbar spine were acquired. COMPARISON: [facility], , L-SPINE 2-3 VIEWS, 03/03/2014, 10:49. FINDINGS: Bones: 5 [id number] vertebrae are present. There is normal bony alignment minimal L3 compression fracture is unchanged. Small vertebral body osteophytes. Disc space height loss most pronounced at L3-L4. No suspicious bony lesions. Soft tissues: Somewhat prominent bowel gas in the mid abdomen. This is likely within the colon. No suspicious soft tissue calcifications. IMPRESSION: Minimal L3 compression fracture is unchanged. Dictated by: Sherwin Sims M.D. on 08/28/2023 at 12:37 Approved by: Sherwin Sims M.D. on 08/28/2023 at 12:40
== END ==
PROVIDERS: PCP Family Medicine; Referring Provider Chiropractor; Visit Provider Chiropractor
DX: M54.50 Low back pain, unspecified (principal)
CPT/HCPCS: 72100

== ENCOUNTER → 2025-09-07 16:32 | Outpatient (CLI) | payer OTHER, SELFPAY ==
[2021-07-06 17:13] VITALS: BMI 29.5
--- NOTE | 2025-09-07 16:34 | DI.MRI.S_ITS ---
PROCEDURE: MR LUMBAR SPINE WO CON INDICATIONS: low back pain radiating to LLE TECHNIQUE: Noncontrast sagittal T1 spin echo and T2 fast echo, sagittal STIR, and T2 fast spin echo through the lumbar spine. In cases with scoliosis, additional coronal T2 fast spin echo may be performed. COMPARISON: None. FINDINGS: Image quality: Excellent Mild retrolisthesis of L3 on L4. Multiple small Schmorl's node in the lumbar spine. There is moderate superior endplate fracture of L2, chronic. Mild superior endplate fracture of L3, chronic as well. No acute fracture in the lumbar spine. No marrow edema. Mildly heterogeneous marrow signal, nonspecific. Multilevel disc bulge and disc desiccation. Conus terminates at the level of L1, and is unremarkable. Right neural foraminal stenosis: Mild at L3-4, L4-5, and L5-S1. Left neural foraminal stenosis: Moderate at L3-4, mild at L5-S1. Axial images: T12-L1: No central canal stenosis. L1-2: Mild disc bulge. No central canal stenosis. L2-3: Mild bilateral facet arthropathy. Disc bulge. Mild central canal stenosis. L3-4: Mild bilateral facet arthropathy with a small posterior projecting left facet cyst. Posterior disc uncovering with disc bulge. Mild central canal stenosis. L4-5: Mild bilateral facet arthropathy. No central canal stenosis. L5-S1: Mild bilateral facet arthropathy. No central canal stenosis. Visualized sacrum is intact. No abdominal aortic aneurysm. Retroperitoneal and left, iliac lymphadenopathy, partially visualized. IMPRESSION: 1. Chronic endplate fracture of L2 on L3. 2. Multilevel degenerative changes, most pronounced at L3-4, where there is mild central canal stenosis and mild right and moderate left neural foraminal stenosis. 3. Retroperitoneal and left iliac lymphadenopathy, partially visualized. Recommend further evaluation CT abdomen pelvis with intravenous contrast. Dictated by: Azucena Potts M.D. on 09/08/2025 at 10:56 Approved by: Azucena Potts M.D. on 09/08/2025 at 11:04
== END ==
LOC: MRI 16:33
PROVIDERS: Family Provider Family Medicine; PCP Family Medicine; Referring Provider Physical Medicine & Rehabilitation; Visit Provider Physical Medicine & Rehabilitation
DX: M47.816 Spondylosis without myelopathy or radiculopathy, lumbar region (principal); M47.27 Other spondylosis with radiculopathy, lumbosacral region; M48.061 Spinal stenosis, lumbar region without neurogenic claudication; M48.07 Spinal stenosis, lumbosacral region; R59.0 Localized enlarged lymph nodes
CPT/HCPCS: 72148

== ENCOUNTER 2025-10-01 07:57 | Outpatient (CLI) | payer OTHER, SELFPAY ==
[2021-07-06 17:13] VITALS: BMI 29.5
[2025-10-01 08:27] VITALS: BP 170/73; PULSE 48; RESP 16; O2SAT 98
[2025-10-01 08:37] VITALS: BP 163/74; PULSE 51; RESP 14; O2SAT 99
[2025-10-01] MEDS: LIDOCAINE 1% (PF) 5 ML 10 ML INJ (08:41)
[2025-10-01 08:55] VITALS: BP 181/74; PULSE 51; RESP 16; O2SAT 98
--- NOTE | 2025-10-01 12:25 | P.PCN_ITS ---
Date/Time/Diagnoses
--- NOTE | 2025-10-01 12:25 | PM.PROC.IR.1 ---
Date/Time/Diagnoses Date of procedure: 10/01/25 Time of procedure: 08:30 Pre-procedure diagnosis: Lumbar radiculopathy Post-procedure diagnosis: same Procedure Notes Procedure: Interlaminar epidural steroid injection L3-4 Indications: Lumbar radiculopathy Physician: Seng Parr Total sedation minutes: 0 Complications: none Procedure in detail & Post-procedure care: Patient is here for the planned procedure today as noted. No significant change since the last office visit. For additional clinical scenario please see those office notes. Focused exam: Vital signs reviewed as charted on intake. Gen: Well developed. No acute distress. CV: RRR, slow/bradycardic, no M/R/G. See below. Chest: Non-labored breathing, CTAB. Psych: Alert and well-oriented. Mood/Affect: normal. Patient suitable for the planned procedure today: Yes === The following procedure was performed in the office today: Lumbar Epidural Steroid Injection with fluoroscopic guidance - Interlaminar approach (07015) Levels Treated: L3-4 Approach: interlaminar Soft tissue: [1% lidocaine 2 mL] Test dose: [1% lidocaine 1 mL] Injectate: 1.5 mL of dexamethasone (10mg/mL) in 1 mL 1% lidocaine and 1.5 mL normal saline Fluoroscopy Agent: Isovue 300-M 1.5 mL Notes: 1- noted to be bradycardic, asymptomatic. He is on metoprolol. Discussed with him and we agreed he will check with his PCP re: the bradycardia, HR 48-52 BPM. 2- 3.5 in 20 gauge Touhy needle utilized, unable to penetrate calcification at the ligamentum flavum. Change to 18 gauge 3.5 in Touhy needle which was adequate. Preprocedure pain 2/10, postprocedure pain 0/10. Procedure: After discussing the risks, benefits, and alternatives to the procedure, the patient expressed understanding and wished to proceed. The risks include but are not limited to infection, allergic reaction, nerve damage, stroke, paralysis, epidural hematoma, syncope, headache, respiratory or cardiac arrest, spinal cord injury, and scar formation. Informed consent was obtained and all patient questions were answered. The patient was brought to the procedure suite and placed in the prone position. A pre-procedural pause was conducted to verify: correct patient identity, procedure to be performed and as applicable, correct side and site, correct patient position, and any special requirements. Using a paramedian approach from the side noted above, the region overlying the target was localized under fluoroscopic visualization and the soft tissues overlying this structure were infiltrated with the anesthetic listed above. With fluoroscopic guidance, a #20 gauge Tuohy needle (unless otherwise noted) was inserted into the epidural space using a paramedian approach. The epidural space was localized utilizing intermittent multiplanar fluoroscopic guidance and loss of resistance technique. After negative aspiration, the contrast noted above was injected into the epidural space and the flow of contrast was observed, confirming epidural spread without evidence of intravascular or intrathecal spread. Multi-planar radiographs were obtained for documentation purposes. A test dose of lidocaine was injected into the above noted epidural space, and the patient was observed for 30-60 seconds. No sensory deficits were reported and normal lower extremity motor function was noted. Subsequently, the injectate as noted above was administered into the level noted above. The patient tolerated the procedure well and was discharged after an appropriate period of observation. If there are any complications, the patient was instructed to call us. The patient is to follow-up with the requesting provider in 2-3 weeks. This note was compiled using voice recognition software and therefore may contain typos. Please contact the author with any questions or concerns.
== END 2025-10-01 09:00 | disposition home or self-care (01) ==
LOC: RAD 07:59
PROVIDERS: PCP Family Medicine; Referring Provider Physical Medicine & Rehabilitation; Visit Provider Physical Medicine & Rehabilitation
DX: M54.16 Radiculopathy, lumbar region (principal)
CPT/HCPCS: 62323; J1100